=== PATIENT | male | born 1985 | race Caucasian/White ===

== ENCOUNTER 2016-08-25 13:19 | Day surgery (SDC) | payer BC ==
[~2016-08-25] VITALS: Ht 177.8 cm; Wt 95.4 kg
[2016-08-25] VITALS (8 sets, daily range): BP systolic 95–133; BP diastolic 61–89; PULSE 68–102; TEMP 98.6–98.8
[2016-08-25] MEDS ORDERED: ALLEGRA 180MG180 MG PO (13:58)
[2016-08-25] MEDS ORDERED: WELLBUTRIN XL300 M1 PO (13:58)
[2016-08-25] MEDS ORDERED: SINGULAIR 110 MG/TAB PO (13:58)
[2016-08-25] MEDS ORDERED: PROVIGIL200 MG PO (13:59)
[2016-08-25] MEDS ORDERED: MELAT3MGTAB PO (14:00)
[2016-08-25] MEDS ORDERED: MULTI VITAMINS1 TAB PO (14:00)
[2016-08-25] MEDS ORDERED: BENADRYL25 M2 PO (14:01)
[2016-08-25] MEDS ORDERED: PROAIR HFA0.09 MG/AC IH (14:02)
[2016-08-25] MEDS ORDERED: BENTYL 20MG20 MG/TAB PO (14:03)
== END 2016-08-25 16:07 | disposition home or self-care (01) ==
LOC: SDCO 13:19
DX: R19.7 Diarrhea, unspecified (principal); F32.9 Major depressive disorder, single episode, unspecified; J45.909 Unspecified asthma, uncomplicated; K58.9 Irritable bowel syndrome, unspecified; Z87.891 Personal history of nicotine dependence
CPT/HCPCS: OP; J2250; J2405; J3010; J7030